=== PATIENT | male | born 1975 | race Caucasian/White ===

== ENCOUNTER 2023-10-25 14:32 | Inpatient (IN) | payer OTHER ==
[2023-10-25 15:22] VITALS: BMI 21.1
[2023-10-25] MEDS ORDERED: BENZOCAINE/MENTHOL (CHLORASEPTIC ) LOZENGE MM PRN (18:19)
[2023-10-25] MEDS ORDERED: MAG HYDROX/AL HYDROX/SIMETH 30 ML UNIT-DOSE CUP PO PRN (18:19)
[2023-10-25] MEDS ORDERED: P-EPHED 60MG/TRIPROLIDI 2.5MG TABLET PO PRN (18:19)
[2023-10-25] MEDS ORDERED: LOPERAMIDE HCL 2 MG CAPSULE PO PRN (18:19)
[2023-10-25] MEDS ORDERED: NALOXONE HCL 0.4 MG/ML VIAL IM PRN (18:19)
[2023-10-25] MEDS ORDERED: MAGNESIUM HYDROX 2400MG/30ML ORAL SUSPENSION 30 ML CUP PO PRN (18:19)
[2023-10-25] MEDS ORDERED: NICOTINE POLACRILEX 2 MG GUM BUC PRN (18:19)
[2023-10-25] MEDS ORDERED: BENZONATATE 200 MG CAPSULE PO PRN (18:19)
[2023-10-25] MEDS ORDERED: ACETAMINOPHEN 325 MG TABLET (FP) PO PRN (18:19)
[2023-10-25] MEDS ORDERED: NALOXONE (NARCAN) HCL 4 MG/0.1 ML SPRAY NS PRN (18:19)
[2023-10-25] MEDS ORDERED: IBUPROFEN 600 MG TABLET (FP) PO PRN (18:19)
[2023-10-25] MEDS ORDERED: DICYCLOMINE HCL 10 MG CAPSULE PO PRN (18:19)
[2023-10-25] MEDS ORDERED: BISMUTH SUBSALICYLATE 524 MG/30 ML PO PRN (18:19)
[2023-10-25] MEDS ORDERED: IBUPROFEN 400 MG TABLET (FP) PO PRN (18:19)
[2023-10-25] MEDS ORDERED: POLYETHYLENE GLYCOL (HEALTHYLAX) 3350 17 GM PACKET PO PRN (18:19)
[2023-10-25] MEDS ORDERED: NICOTINE POLACRILEX 2 MG LOZENGE BC PRN (18:19)
[2023-10-25] MEDS ORDERED: guaiFENesin 600 MG TABLET.ER (FP) PO PRN (18:19)
[2023-10-25] MEDS ORDERED: ONDANSETRON *ODT* 4 MG TABLET SL PRN (18:19)
[2023-10-25] MEDS: MELATONIN 5 MG TABLETS PO SCH (22:14)
[2023-10-25] MEDS: hydrOXYzine PAMOATE 25 MG CAPSULE (FP) PO PRN (22:16)
[2023-10-25] MEDS: METHOCARBAMOL 500 MG TABLET PO PRN (22:16)
[2023-10-25] MEDS: THIAMINE 100 MG TABLET PO SCH (22:27)
[2023-10-26] MEDS: PRENATAL VITAMINS W/ FOLIC ACID TABLET (FP) PO SCH (10:32)
[2023-10-26] MEDS: methaDONE HCL 10 MG TABLET (FOR DETOX USE ONLY) PO ONE (10:33)
[2023-10-26 11:07] LABS: CHLORIDE 105 mmol/L (98-107); POTASSIUM 4.9 mmol/L (3.5-5.1); SODIUM 141 mmol/L (136-145)
[2023-10-26 11:10] LABS: CALCIUM 8.7 mg/dL (8.5-10.1)
[2023-10-26 11:11] LABS: ALBUMIN 2.7 g/dl (3.4-5.0); ANION GAP 5 mmol/L (4-13); BLOOD UREA NITROGEN 14.6 mg/dL (7-18); CO2 31 mmol/L (21-32); GLUCOSE,RANDOM 92 mg/dL (74-106)
[2023-10-26 11:14] LABS: CREATININE 0.7 mg/dL (0.55-1.3); SGOT/AST 23 U/L (15-37); SGPT/ALT 25 U/L (13-61)
[2023-10-26 11:15] LABS: BILIRUBIN,TOTAL 0.2 mg/dL (0.2-1)
[2023-10-26 11:16] LABS: TOT PROT 5.3 g/dl (6.4-8.2)
[2023-10-26 11:17] LABS: HEMATOCRIT 38.9 % (35.4-49); HEMOGLOBIN 13.1 GM/dL (11.7-16.9); MCH 30.7 pg (25.7-33.7); MCHC 33.8 g/dl (32.0-35.9); MEAN CELL VOLUME 90.7 fl (80-96); MEAN PLT VOLUME 8.1 fl (7.5-11.1); PLATELET COUNT 276 10^3/uL (134-434); RBC 4.29 M/mm3 (4.00-5.60); RDW 14.3 % (11.9-15.9); WHITE BLOOD COUNT 7.6 K/mm3 (4.0-10.0)
[2023-10-26 11:18] LABS: ALK PHOS 66 U/L (45-117)
[2023-10-26] MEDS: cloNIDine HCL 0.1 MG TABLET PO PRN (22:21)
[2023-10-27] MEDS: cloNIDine HCL 0.1 MG TABLET PO SCH (17:36)
[2023-10-27] MEDS: methaDONE HCL 10 MG TABLET PO PRN (18:28)
[2023-10-28] MEDS ORDERED: methaDONE HCL 10 MG TABLET (FOR DETOX USE ONLY) PO ONE (10:00)
[2023-10-28] MEDS ORDERED: methaDONE HCL 40 MG DISPERSABLE TABLET PO ONE (10:00)
[2023-10-29] MEDS ORDERED: cloNIDine HCL 0.1 MG TABLET PO PRN
[2023-10-29 09:17] VITALS: BP 129/78; PULSE 90; RESP 18; TEMP 97.5
[2023-10-29] MEDS: methaDONE 40 MG, methaDONE 10 MG PO ONE (09:33)
[2023-10-29] MEDS ORDERED: methaDONE HCL 40 MG DISPERSABLE TABLET PO ONE (10:00)
[2023-10-30] MEDS ORDERED: methaDONE 40 MG, methaDONE 10 MG PO ONE (10:00)
[2023-10-30] MEDS ORDERED: methaDONE HCL 10 MG TABLET (FOR DETOX USE ONLY) PO ONE (10:00)
[2023-10-30] MEDS ORDERED: methaDONE HCL 40 MG DISPERSABLE TABLET PO ONE (10:00)
[2023-10-31] MEDS ORDERED: methaDONE HCL 40 MG DISPERSABLE TABLET PO ONE (10:00)
[2023-11-01] MEDS ORDERED: methaDONE 40 MG, methaDONE 20 MG PO ONE (10:00)
[2023-11-01] MEDS ORDERED: methaDONE HCL 40 MG DISPERSABLE TABLET PO ONE (10:00)
== END 2023-10-29 10:29 | disposition left against medical advice (07) | DRG 770 ==
LOC: YASAS 14:32 → Y3N 19:16
PROVIDERS: ADMIT Allergy & Immunology; ATTEND Surgery
PROC: HZ2ZZZZ Detoxification Services for Substance Abuse Treatment (ICD-10-PCS; principal; 2023-10-25)
DX: F11.23 Opioid dependence with withdrawal (principal); F14.20 Cocaine dependence, uncomplicated; F17.210 Nicotine dependence, cigarettes, uncomplicated
CPT/HCPCS: 36415; 80053; 80305; 80307; 85027; 86780; 93005; 93010

== ENCOUNTER 2023-12-20 11:36 | Inpatient (IN) | payer OTHER ==
[2023-12-20 12:36] VITALS: RESP 17
[2023-12-20] MEDS ORDERED: NICOTINE POLACRILEX 2 MG LOZENGE BC PRN (13:03)
[2023-12-20] MEDS ORDERED: POLYETHYLENE GLYCOL (HEALTHYLAX) 3350 17 GM PACKET PO PRN (13:03)
[2023-12-20] MEDS ORDERED: NALOXONE (NARCAN) HCL 4 MG/0.1 ML SPRAY NS PRN (13:03)
[2023-12-20] MEDS ORDERED: BENZOCAINE/MENTHOL (CHLORASEPTIC ) LOZENGE MM PRN (13:03)
[2023-12-20] MEDS ORDERED: MAG HYDROX/AL HYDROX/SIMETH 30 ML UNIT-DOSE CUP PO PRN (13:03)
[2023-12-20] MEDS ORDERED: MAGNESIUM HYDROX 2400MG/30ML ORAL SUSPENSION 30 ML CUP PO PRN (13:03)
[2023-12-20] MEDS ORDERED: ACETAMINOPHEN 325 MG TABLET (FP) PO PRN (13:03)
[2023-12-20] MEDS ORDERED: P-EPHED 60MG/TRIPROLIDI 2.5MG TABLET PO PRN (13:03)
[2023-12-20] MEDS ORDERED: IBUPROFEN 400 MG TABLET (FP) PO PRN (13:03)
[2023-12-20] MEDS ORDERED: guaiFENesin 600 MG TABLET.ER (FP) PO PRN (13:03)
[2023-12-20] MEDS ORDERED: NALOXONE (NYS OPIOID OVERDOSE PROGRAM) 4 MG/0.1 ML SPRAY NS PRN (13:03)
[2023-12-20] MEDS ORDERED: IBUPROFEN 600 MG TABLET (FP) PO PRN (13:03)
[2023-12-20] MEDS ORDERED: NICOTINE POLACRILEX 2 MG GUM BUC PRN (13:03)
[2023-12-20] MEDS ORDERED: LOPERAMIDE HCL 2 MG CAPSULE PO PRN (13:03)
[2023-12-20] MEDS ORDERED: BENZONATATE 200 MG CAPSULE PO PRN (13:03)
[2023-12-20 14:07] VITALS: BP 101/67; PULSE 78; TEMP 97.5
[2023-12-20] MEDS ORDERED: MELATONIN 5 MG TABLETS PO SCH (22:00)
[2023-12-20] MEDS ORDERED: THIAMINE 100 MG TABLET PO SCH (22:00)
[2023-12-21] MEDS ORDERED: methaDONE 40 MG, methaDONE 20 MG PO SCH (06:00)
[2023-12-21] MEDS ORDERED: methaDONE HCL 10 MG TABLET PO SCH (06:00)
[2023-12-21] MEDS ORDERED: PRENATAL VITAMINS W/ FOLIC ACID TABLET (FP) PO SCH (10:00)
== END 2023-12-20 19:00 | disposition home or self-care (01) | DRG 772 ==
LOC: YASAS 11:36 → Y3NR 13:29
PROVIDERS: ADMIT Psychiatry & Neurology Pain Medicine; ATTEND Psychiatry & Neurology Pain Medicine
PROC: HZ42ZZZ Group Counseling for Substance Abuse Treatment, Cognitive-Behavioral (ICD-10-PCS; principal; 2023-12-20)
DX: F11.20 Opioid dependence, uncomplicated (principal); F14.20 Cocaine dependence, uncomplicated; F17.210 Nicotine dependence, cigarettes, uncomplicated
CPT/HCPCS: 80305; 87811